=== PATIENT | female | born 1990 ===

== ENCOUNTER 2019-09-26 12:06 | Emergency (ER) | payer OTHER ==
--- NOTE | 2019-09-26 12:27 | ED ---
HPI Chest Pain - HPI Summary HPI Summary: This patient is a 29 year old female presenting to [facility] with a chief complain of chest pain since several days ago. She states she when she bends over is when she gets the pain. She denies cough, SOB, or fever. She states she has a history of pneumonias and is worried about that. She states the pain is across anterior chest and down the mid-sternum. - History of Current Complaint Chief Complaint: EDChestWallPain Time Seen by Provider: 09/26/19 12:23 Hx Obtained From: Patient Pain Intensity: 0 - Allergy/Home Medications Allergies/Adverse Reactions: Allergies Allergy/AdvReac Type Severity Reaction Status Date / Time No Known Allergies Allergy Verified 09/26/19 12:12 Home Medications: Home Medications Buprenorp/Nalox 8-2 MG FILM [Suboxone 8 mg-2 mg Sl Film] 1 each SL DAILY [History Confirmed 09/26/19] Bupropion XL* [Wellbutrin XL *] 150 mg PO DAILY 09/26/19 [History Confirmed ] Gabapentin 600 mg PO TID 09/26/19 [History Confirmed 09/26/19] Hydroxychloroquine TAB* [Plaquenil TAB*] 200 mg PO DAILY 09/26/19 [History Confirmed 09/26/19] Mirtazapine TAB* [Remeron TAB*] 30 mg PO BEDTIME 09/26/19 [History Confirmed ] Multivitamin [Koj-Gqhoiu-Swewg] 1 each PO DAILY 09/26/19 [History Confirmed ] Nicotine PATCH 21 MG/24 HR* 21 mg TRANSDERM DAILY 09/26/19 [History Confirmed ] Venlafaxine HCl 75 mg PO BID 09/26/19 [History Confirmed 09/26/19] cloNIDine TAB* [Catapres 0.1 MG TAB*] 0.1 mg PO TID 09/26/19 [History Confirmed 09/26/19] hydrOXYzine pamoate [Vistaril] 25 mg PO SEE INSTRUCTIONS PRN 09/26/19 [History Confirmed 09/26/19] predniSONE 10 mg TAB [Deltasone 10 MG TAB*] 10 mg PO DAILY 09/26/19 [History Confirmed 09/26/19] PMH/Surg Hx/FS Hx/Imm Hx Infectious Disease History: No Infectious Disease History: Denies: Traveled Outside the [place] in Last 30 Days Review of Systems Negative: Fever Positive: Chest Pain All Other Systems Reviewed And Are Negative: Yes Physical Exam - Summary Physical Exam Summary: Appearance: The patient is well-nourished in no acute distress and in no acute pain. Skin: The skin is warm and dry, and skin color reflects adequate perfusion. HEENT: The head is normocephalic and atraumatic. The pupils are equal and reactive. The conjunctivae are clear and without drainage. Nares are patent and without drainage. Mouth reveals moist mucous membranes, and the throat is without erythema and exudate. The external ears are intact. The ear canals are patent and without drainage. The tympanic membranes are intact. Neck: The neck is supple with full range of motion and non-tender. There are no carotid bruits. There is no neck vein distension. Respiratory: Chest is non-tender. Lungs are clear to auscultation and breath sounds are symmetrical and equal. Cardiovascular: Heart is regular rate and rhythm. There is no murmur or rub auscultated. There is no peripheral edema and pulses are symmetrical and equal. Abdomen: The abdomen is soft and non-tender. There are normal bowel sounds heard in all four quadrants and there is no organomegaly palpated. Musculoskeletal: There is no back tenderness noted. Extremities are non-tender with full range of motion. There is good capillary refill. There is no peripheral edema or calf tenderness elicited. Neurological: Patient is alert and oriented to person, place and time. The patient has symmetrical motor strength in all four extremities. Cranial nerves are grossly intact. Deep tendon reflexes are symmetrical and equal in all four extremities. Psychiatric: The patient has an appropriate affect and does not exhibit any anxiety or depression. Triage Information Reviewed: Yes Vital Signs On Initial Exam: Initial Vitals Temp Pulse Resp BP Pulse Ox 97.7 F 90 16 136/91 99 09/26/19 12:09/26/19 12:09/26/19 12:09/26/19 12:09/26/19 12:09 Vital Signs Reviewed: Yes Procedures - Sedation Patient Received Moderate/Deep Sedation with Procedure: No Diagnostics - Vital Signs Vital Signs Temp Pulse Resp BP Pulse Ox 09/26/19 12: 97.7 F 90 16 136/91 99 - Laboratory Result Diagrams: 09/26/19 12:36 09/26/19 12:36 Lab Statement: Any lab studies that have been ordered have been reviewed, and results considered in the medical decision making process. - Radiology CXR Radiology Interpretation Completed By: Radiologist Summary of Radiographic Findings: 1. Subtle distortion of pedro right upper lung zone parenchymal markings (underlying bleb/bulla not excluded). There is no pneumothorax. 2. No focal airspace opacification. ED Provider has reviewed this report. - CT CTA Chest CT Interpretation Completed By: Radiologist Summary of CT Findings: 1. No pulmonary embolus detected to the level fo pedro segmental pulmonary arterites. 2. There is mild right upper lobe pleural- parenchymal scarring and bronchiectasis. As such, the relative paucity of of vascular markings in this region could be physiologic response to chronically decreased ventilation. ED Provider has reviewed this report. ED Provider has reviewed this report. - EKG 1245 Cardiac Rate: NL - 1245 EKG Rhythm: Sinus Rhythm Summary of EKG Findings: Normal sinus rhythm, normal ST, no ectopy, no STEMI. ED Physician has reviewed and interpreted this EKG. Chest Pain Course/Dx - Course Course Of Treatment: Ms. Mtz is a day or so of anterior chest pain which is pleuritic in nature. She was nontoxic in appearance with stable vitals. She did have a mild elevation of her d-dimer as well as an equivocal reading on her plain film of her chest by the radiologist. I obtained a CTA which showed no pulmonary embolus and I don't think anything dangerous is happening at this point she is discharged back to [facility] with symptomatic treatment. - Diagnoses Provider Diagnoses: Chest wall pain Discharge ED - Sign-Out/Discharge Documenting (check all that apply): Patient Departure - Discharge - Discharge Plan Condition: Stable Disposition: HOME Patient Education Materials: Chest Wall Pain (ED) Referrals: [facility] [Outside] Additional Instructions: Return to ED with new or worsening symptoms. - Billing Disposition and Condition Condition: STABLE Disposition: Home - Attestation Statements Document Initiated by Scribe: Yes Documenting Scribe: Devendra Calderon Provider For Whom Scribe is Documenting (Include Credential): Mihai Loredo MD Scribe Attestation: IDevendra, scribed for Mihai Loredo MD on 09/26/19 at 1717. Scribe Documentation Reviewed: Yes Provider Attestation: The documentation as recorded by the scribe, Devendra Calderon accurately reflects the service I personally performed and the decisions made by me, Mihai Loredo MD Status of Scribe Document: Viewed
[2019-09-26 12:46] LABS: ABS Lymphocytes 0.9 10^3/ul (1.0-4.8); ABS Monocytes 0.4 10^3/ul (0-0.8); ABS Neutrophils 7.8 10^3/ul (1.5-7.7); Eosinophil % 0.5 %; Hematocrit 36 % (35-47); Hemoglobin 11.9 g/dL (12.0-16.0); Lymphocyte % 9.8 %; Mean Corpuscular HGB Conc 33 g/dL (31-36); Mean Corpuscular Hemoglobin 28 pg (27-31); Mean Corpuscular Volume 85 fL (80-97); Mean Platelet Volume 8.7 fL (7.4-10.4); Platelet Count 291 10^3/uL (150-450); Red Blood Count 4.23 10^6 /uL (3.70-4.87); Red Cell Distribution Width 13 % (10-15); White Blood Count 9.1 10^3/uL (3.5-10.8)
[2019-09-26 13:32] LABS: ALT 10 U/L (7-52); AST 15 U/L (13-39); Albumin 3.8 g/dL (3.2-5.2); Alkaline Phosphatase 57 U/L (34-104); Anion Gap 4 mmol/L (2-11); BUN/Creatinine Ratio 10.3 (8-20); Blood Urea Nitrogen 9 mg/dL (6-24); CO2 Carbon Dioxide 30 mmol/L (22-32); Calcium 9.8 mg/dL (8.6-10.3); Chloride 103 mmol/L (101-111); EGFR African American 92.5 (>60); EGFR Non-African American 76.4 (>60); Globulin 3.9 g/dL (2-4); Glucose 95 mg/dL (70-100); Potassium 4.1 mmol/L (3.5-5.0); Sodium 137 mmol/L (135-145); Total Protein 7.7 g/dL (6.4-8.9)
[2019-09-26 13:37] LABS: HCG Pregnancy < 0.60 mIU/mL
[2019-09-26] MEDS ORDERED: Iohexol 350* (CONTRAST) 500 ML MDV IV ONE (15:04)
[2019-09-26 17:12] VITALS: BP 132/74
== END 2019-09-26 17:09 | disposition home or self-care (01) ==
LOC: ED 12:06
DX: R07.89 Other chest pain (principal); Z79.52 Long term (current) use of systemic steroids; Z79.899 Other long term (current) drug therapy
CPT/HCPCS: 36415; 71046; 71275; 80053; 83605; 84484; 84702; 85025; 85379; 93005; 99283; Q9967